=== PATIENT | female | born 1945 | race Caucasian/White ===

== ENCOUNTER → 2016-07-01 | Outpatient (CLI) | payer OTHER ==
[~2016-07-01] MED LIST: ADVAIR DISKUS 51 DSK IH; ALBUTEROL0.09 MG/A2 IH; AMARYL4 MG PO; ASPIRIN CHILDRE81 MG PO; ASPIRIN FOR CHI81 MG PO; ASPIRIN325 MG PO; BONIVA150 MG PO; CALCIUM 600 + V1 TA1 PO; CALCIUM 600 +1 EACH PO; CALCIUM WITH V1 EAC2 PO; CLARITIN10 MG PO; DAYPRO600 M1 PO; DOXYCYCLINE HY100 M5 PO; DUONEB 3 MG/3 ML3 M1 INH; FISH OIL1000 MG PO; FUROSEMIDE40 MG PO; GLUCOPHAGE1000 MG PO; GLUCOPHAGE500 M1 PO; LACTULOSE20 GM/30 M PO; LANTUS SOLOS100 U/M1 SC; LASIX40 MG PO; LEVEMIR FLEX100 U/ML SC; LISINOPRIL/HCTZ1 TA1 PO; Lopressor25 MG PO; Lunesta2 MG PO; MEDROL DOSEPAK4 MG PO; METOPROLOL SUCC25 M2 PO; MIRALAX17 GM PO; MOBIC15 MG PO; NEXIUM40 MG PO; NITROSTAT0.4 MG SL; PERCOCET 325 MG1 TA4 PO; PLAVIX75 M1 PO; POTASSIUM CHLO10 ME1 PO; PREDNISONE5 MG PO; PRILOSEC20 M1 PO; PRILOSEC40 M1 PO; PROTONIX40 MG PO; ROBAXIN750 MG PO; SINGULAIR10 M1 PO; SPIRIVA 5 CAPS18 MCG INH; THEOPHYLLINE300 M2 PO; VIBRAMYCIN100 MG PO; VICODIN HP 6601 TA1 PO; ZOCOR40 MG PO
== END | disposition home or self-care (01) ==
LOC: US 15:41
DX: M79.605 Pain in left leg (principal); M54.5 Low back pain